=== PATIENT | female | born 1995 | race Two or more races ===

== ENCOUNTER 2016-10-31 10:37 | Emergency (ER) | payer MEDICAID ==
[~2016-10-31] VITALS: Ht 157.5 cm; Wt 82.0 kg
[2016-10-31] MEDS ORDERED: LORazepam 1MG TABLET ONE (12:08)
[2016-10-31] MEDS ORDERED: ONDANSETRON ODT 4 MG ONE (12:08)
[2016-10-31] MEDS ORDERED: ONDANSETRON 2MG/ML, 2ML IVPush ONE (12:30)
[2016-10-31] MEDS ORDERED: SODIUM CHLORIDE 0.9% 1,000ML IVBOLUS ONE (12:30)
[2016-10-31] MEDS ORDERED: LORazepam 1MG TABLET PO ONE (12:30)
[2016-10-31 12:48] LABS: BLOOD UREA NITROGEN 7 mg/dL (7-18)
[2016-10-31 12:56] LABS: ACETAMINOPHEN < 2 mcg/mL (10-30)
[2016-10-31 13:24] VITALS: BP 109/79
[2016-10-31] MEDS ORDERED: ONDANSETRON ODT 4 MG PO ONE (14:00)
[2016-10-31 14:02] LABS: DAU SCREEN DISCLAIMER
[2016-10-31 14:14] LABS: PATH.CAST-FLAG NOT PRESENT; SPERM-FLAG NOT PRESENT; SRC-FLAG NOT PRESENT; XTAL-FLAG NOT PRESENT; YLC-FLAG NOT PRESENT
== END 2016-10-31 14:12 | disposition home or self-care (01) ==
LOC: ED 11:45
DX: F41.1 Generalized anxiety disorder (principal)
CPT/HCPCS: 36415; 80048; 80307; 80329; 81001; 82040; 84703; 85025; 99284; Q0162; G0480